=== PATIENT | male | born 1960 | race Two or more races ===

== ENCOUNTER 2017-10-23 22:00 | Emergency (ER) | payer SELFPAY | END 2017-10-24 02:21 | disposition left against medical advice (07) | LOC: ER 22:00 | DX: F10.120 Alcohol abuse with intoxication, uncomplicated (principal); Z53.21 Procedure and treatment not carried out due to patient leaving prior to being seen by health care provider ==

== ENCOUNTER 2018-05-19 10:33 | Inpatient (IN) | payer MEDICAID, OTHER ==
[~2018-05-19] VITALS: Ht 172.7 cm; Wt 88.0 kg
[2018-05-19 10:49] LABS: Urine WBC None Seen /hpf (0 - 3)
[2018-05-19] MEDS ORDERED: SODIUM CHLORIDE 0.9% 1,000 ML IV ONE (11:00)
[2018-05-19] MEDS ORDERED: ONDANSETRON HCL 4 MG/2 ML VIAL IV ONE ×2 (11:00→14:00)
[2018-05-19 11:12] LABS: Urine Bacteria NONE SEEN /hpf (None Seen); Urine Blood Negative /uL (Negative); Urine Mucus FEW (None Seen); Urine Specific Gravity 1.012 (1.001-1.035)
[2018-05-19] MEDS ORDERED: KETOROLAC TROMETH 30 MG/ML 1ML VIAL IV ONE (11:30)
[2018-05-19 11:31] LABS: Basophils # (auto) 0 uL; Basophils % (auto) 0.3 % (0.0-2.0); Eosinophils # (auto) 0 uL; Eosinophils % (auto) 0.1 % (0.0-7.0); Hematocrit 48.2 % (41.0-53.0); Hemoglobin 16.2 g/dL (13.5-17.5); Lymphocytes # (auto) 0.8 uL; Lymphocytes % (auto) 9.5 % (10.0-50.0); Mean Corpuscular Hemoglobin 29.7 pg (28.0-32.0); Mean Corpuscular Hgb Conc. 33.7 g/dL (32.0-36.0); Mean Corpuscular Volume 88.3 fL (80.0-100.0); Monocytes # (auto) 0.5 uL; Monocytes % (auto) 6.1 % (0.0-12.0); Neutrophils # (auto) 7.5 uL; Nucleated Red Blood Cells % 0.1 %; Platelet Count (auto) 120 10^3/uL (140-450); Red Blood Cells 5.46 10^6/uL (4.5-5.90); Red Cell Distribution Width 15.5 % (11.8-14.3); White Blood Cell 8.9 10^3/uL (4.4-10.8)
[2018-05-19 11:59] LABS: Alanine Aminotransferase 415 U/L (16-61); Albumin 3.5 g/dL (3.4-5.0); Alkaline Phosphatase 120 U/L (45-117); Amylase 985 U/L (25-115); Anion Gap 6 (5-15); Aspartate Aminotransferase 371 U/L (15-37); BUN/Creatinine Ratio 15.9; Bilirubin, Total 2.2 mg/dL (0.2-1.0); Blood Urea Nitrogen 26 mg/dL (7-18); Calcium 8.6 mg/dL (8.5-10.1); Carbon Dioxide 26 mmol/L (21-32); Chloride 105 mmol/L (98-107); GFR African American 56 mL/min; GFR Non-African American 46 mL/min; Glucose 162 mg/dL (74-106); Lipase 15365 U/L (73-393); Magnesium 2.3 mg/dL (1.6-2.6); Potassium 4.1 mmol/L (3.5-5.1); Sodium 137 mmol/L (136-145); Total Protein 8.3 g/dL (6.4-8.2)
[2018-05-19] MEDS ORDERED: SODIUM CHLORIDE 0.9% 1,000 ML IVB ONE (12:38)
[2018-05-19] MEDS ORDERED: PANTOPRAZOLE 40 MG/10 ML VIAL IV ONE ×2 (12:45→15:00)
[2018-05-19] MEDS ORDERED: MORPHINE SULF INJ 2 MG/ML SYRINGE 1ML IV ONE ×2 (14:00→15:30)
[2018-05-19] MEDS ORDERED: DEXTROSE (50%) 50ML SYRG IV PRN (15:00)
[2018-05-19] MEDS ORDERED: ONDANSETRON HCL 4 MG/2 ML VIAL IV PRN (15:00)
[2018-05-19] MEDS ORDERED: MORPHINE SULF INJ 2 MG/ML SYRINGE 1ML IV PRN (15:00)
[2018-05-19] MEDS ORDERED: LORazepam 0.5 MG TAB PO PRN (15:00)
[2018-05-19] MEDS ORDERED: NITROGLYCERIN 0.4 MG SL TAB SL PRN (15:00)
[2018-05-19] MEDS: SODIUM CHLORIDE 0.9% 1,000 ML IV SCH ×2 (15:07→23:13)
[2018-05-19] MEDS: ACCU-CHEK COMFORT CURVE STRIP VI SCH ×2 (17:08→23:14)
[2018-05-19] MEDS: MORPHINE SULFATE 4 MG/ML SYR/VIAL IV PRN ×2 (18:56→23:13)
[2018-05-19 20:30] VITALS: BP 147/91
[2018-05-19 21:40] VITALS: BP 147/91
[2018-05-19] MEDS: metroNIDAZOLE 500MG/100ML 100 ML IV SCH (23:14)
[2018-05-20] MEDS: MORPHINE SULFATE 4 MG/ML SYR/VIAL IV PRN (03:47)
[2018-05-20] MEDS: SODIUM CHLORIDE 0.9% 1,000 ML IV SCH ×3 (04:33→17:26)
[2018-05-20 05:35] VITALS: BP 112/62
[2018-05-20] MEDS: metroNIDAZOLE 500MG/100ML 100 ML IV SCH (06:00)
[2018-05-20] MEDS: ACCU-CHEK COMFORT CURVE STRIP VI SCH ×3 (06:00→18:00)
[2018-05-20 07:04] LABS: Basophils # (auto) 0 uL; Eosinophils # (auto) 0 uL; Eosinophils % (auto) 0.3 % (0.0-7.0); Hematocrit 45.1 % (41.0-53.0); Lymphocytes # (auto) 0.4 uL; Lymphocytes % (auto) 4.8 % (10.0-50.0); Mean Corpuscular Hemoglobin 29.7 pg (28.0-32.0); Mean Corpuscular Hgb Conc. 33.3 g/dL (32.0-36.0); Mean Corpuscular Volume 89.1 fL (80.0-100.0); Monocytes # (auto) 0.9 uL; Monocytes % (auto) 9.9 % (0.0-12.0); Neutrophils # (auto) 7.5 uL; Platelet Count (auto) 81 10^3/uL (140-450); Red Blood Cells 5.06 10^6/uL (4.5-5.90); Red Cell Distribution Width 15.4 % (11.8-14.3); White Blood Cell 8.8 10^3/uL (4.4-10.8)
[2018-05-20 07:26] LABS: Cholesterol 127 mg/dL (< 200); HDL Cholesterol 57 mg/dL (40-59); LDL Cholesterol 62 mg/dL (< 100); Triglycerides 80 mg/dL (< 150)
[2018-05-20 08:00] VITALS: BP 91/47
[2018-05-20 08:02] LABS: Sodium 138 mmol/L (136-145)
[2018-05-20 08:03] LABS: Alkaline Phosphatase 92 U/L (45-117); Anion Gap 5 (5-15); Aspartate Aminotransferase 198 U/L (15-37); BUN/Creatinine Ratio 16.5; Blood Urea Nitrogen 22 mg/dL (7-18); Carbon Dioxide 18 mmol/L (21-32); Chloride 115 mmol/L (98-107); GFR African American 72 mL/min; GFR Non-African American 59 mL/min; Glucose 99 mg/dL (74-106)
[2018-05-20 08:04] LABS: Alanine Aminotransferase 327 U/L (16-61); Albumin 2.2 g/dL (3.4-5.0); Amylase 362 U/L (25-115); Bilirubin, Total 0.6 mg/dL (0.2-1.0); Calcium 6.8 mg/dL (8.5-10.1); Lipase 2217 U/L (73-393); Total Protein 6.5 g/dL (6.4-8.2)
[2018-05-20] MEDS: PANTOPRAZOLE 40 MG/10 ML VIAL IV SCH (09:39)
[2018-05-20 13:00] VITALS: BP 86/60
[2018-05-20] MEDS: CEFTRIAXONE SODIUM 2 GM in D5W 5% 50 ML IV SCH (14:27)
[2018-05-20] MEDS: MORPHINE SULF INJ 2 MG/ML SYRINGE 1ML IV PRN ×2 (15:36→20:12)
[2018-05-20 17:00] VITALS: BP 102/55
[2018-05-20 22:00] VITALS: BP 133/81
[2018-05-21] MEDS: SODIUM CHLORIDE 0.9% 1,000 ML IV SCH ×2 (00:12→05:49)
[2018-05-21] MEDS: MORPHINE SULF INJ 2 MG/ML SYRINGE 1ML IV PRN ×5 (00:12→19:43)
[2018-05-21] MEDS: ACCU-CHEK COMFORT CURVE STRIP VI SCH ×4 (00:19→18:01)
[2018-05-21 05:30] VITALS: BP 143/77
[2018-05-21 07:08] LABS: INR 1.07 (0.9-1.15); Partial Thromboplastin Time 26.8 sec (23.78-33.04); Prothrombin Time 11.4 sec (9.27-12.13)
[2018-05-21 09:00] VITALS: BP 151/86
[2018-05-21 09:39] LABS: Albumin 2.4 g/dL (3.4-5.0); Calcium 6.8 mg/dL (8.5-10.1); Potassium 3.8 mmol/L (3.5-5.1)
[2018-05-21 09:41] LABS: Bilirubin, Total 0.4 mg/dL (0.2-1.0); Total Protein 6.1 g/dL (6.4-8.2)
[2018-05-21] MEDS: PANTOPRAZOLE 40 MG/10 ML VIAL IV SCH (10:17)
[2018-05-21] MEDS: CEFTRIAXONE SODIUM 2 GM in D5W 5% 50 ML IV SCH (11:41)
[2018-05-21 13:00] VITALS: BP 163/95
[2018-05-21] MEDS ORDERED: LABETALOL HCL 5 MG/ML ML 20ML VIAL IV PRN (13:45)
[2018-05-21] MEDS ORDERED: LORazepam 2MG/ML-1ML VIAL IV PRN (13:45)
[2018-05-21] MEDS: SOD CHL 0.45% WITH 20MEQ KCL 1,000 ML IV SCH (15:17)
[2018-05-21 17:19] VITALS: BP 163/94
[2018-05-21 22:00] VITALS: BP 158/86
[2018-05-21] MEDS: TEMAZEPAM 15 MG CAP PO PRN (22:00)
[2018-05-21] MEDS: MORPHINE SULFATE 4 MG/ML SYR/VIAL IV PRN (23:59)
[2018-05-22] MEDS: SOD CHL 0.45% WITH 20MEQ KCL 1,000 ML IV SCH
[2018-05-22] MEDS: ACCU-CHEK COMFORT CURVE STRIP VI SCH ×2 (00:55→05:38)
[2018-05-22 02:53] VITALS: BP 156/71
[2018-05-22 04:52] VITALS: BP 153/82
[2018-05-22 09:00] VITALS: BP 183/87
[2018-05-22 09:05] LABS: BUN/Creatinine Ratio 14.4; Calcium 8.4 mg/dL (8.5-10.1); Potassium 4.1 mmol/L (3.5-5.1)
[2018-05-22] MEDS ORDERED: NICOTINE 21MG/24 HR TOPICAL PATCH TD ONE ×2 (10:15→10:30)
[2018-05-22] MEDS ORDERED: amLODIPine BESYLATE 5 MG TAB PO ONE ×2 (10:15→10:30)
[2018-05-22] MEDS: PANTOPRAZOLE 40 MG/10 ML VIAL IV SCH (10:18)
[2018-05-22] MEDS: CEFTRIAXONE SODIUM 2 GM in D5W 5% 50 ML IV SCH (10:19)
[2018-05-22] MEDS ORDERED: LISINOPRIL 20 MG TAB PO ONE (10:30)
[2018-05-22] MEDS ORDERED: CEFTRIAXONE SODIUM 2 GM in D5W 5% 50 ML IV ONE (10:30)
[2018-05-22] MEDS ORDERED: PANTOPRAZOLE 40 MG/10 ML VIAL IV ONE (10:30)
[2018-05-22] MEDS: D5W/SOD CHL 0.45%/KCL 20MEQ 1,000 ML IV SCH ×2 (11:15→19:55)
[2018-05-22] MEDS: KETOROLAC TROMETH 30 MG/ML 1ML VIAL IV PRN ×2 (11:26→17:16)
[2018-05-22 13:00] VITALS: BP 112/84
[2018-05-22] MEDS ORDERED: hydrALAZINE HCL 20 MG/ML VL IV PRN (14:45)
[2018-05-22] MEDS ORDERED: MORPHINE SULF INJ 2 MG/ML SYRINGE 1ML IV PRN (14:45)
[2018-05-22 17:00] VITALS: BP 120/78
[2018-05-22] MEDS: MORPHINE SULF INJ 2 MG/ML SYRINGE 1ML IV PRN (20:09)
[2018-05-22 22:00] VITALS: BP 147/94
[2018-05-22] MEDS ORDERED: NORTRIPTYLINE HCL 10 MG CAP PO SCH (22:00)
[2018-05-22] MEDS ORDERED: NORTRIPTYLINE HCL 25 MG CAP PO ONE (23:00)
[2018-05-22] MEDS: TEMAZEPAM 15 MG CAP PO PRN (23:05)
[2018-05-22] MEDS: LISINOPRIL 20 MG TAB PO SCH (23:06)
[2018-05-23] MEDS: MORPHINE SULF INJ 2 MG/ML SYRINGE 1ML IV PRN (04:35)
[2018-05-23] MEDS: D5W/SOD CHL 0.45%/KCL 20MEQ 1,000 ML IV SCH (04:35)
[2018-05-23 05:00] VITALS: BP 122/85
[2018-05-23 06:03] LABS: Basophils # (auto) 0 uL; Basophils % (auto) 0.4 % (0.0-2.0); Eosinophils # (auto) 0.1 uL; Hematocrit 44.7 % (41.0-53.0); Hemoglobin 15.7 g/dL (13.5-17.5); Lymphocytes # (auto) 2.8 uL; Mean Corpuscular Hemoglobin 30.3 pg (28.0-32.0); Mean Corpuscular Hgb Conc. 35.2 g/dL (32.0-36.0); Mean Corpuscular Volume 86.2 fL (80.0-100.0); Monocytes # (auto) 0.8 uL; Neutrophils # (auto) 2.9 uL; Neutrophils % (auto) 43.6 % (37.0-80.0); Nucleated Red Blood Cells % 0.2 %; Platelet Count (auto) 117 10^3/uL (140-450); Red Blood Cells 5.19 10^6/uL (4.5-5.90); Red Cell Distribution Width 15.2 % (11.8-14.3); White Blood Cell 6.7 10^3/uL (4.4-10.8)
[2018-05-23 06:24] LABS: Calcium 8.6 mg/dL (8.5-10.1); Potassium 4.3 mmol/L (3.5-5.1)
[2018-05-23 06:30] LABS: BUN/Creatinine Ratio 14.4
[2018-05-23 09:00] VITALS: BP 148/86
[2018-05-23] MEDS: PANTOPRAZOLE 40 MG/10 ML VIAL IV SCH (09:59)
[2018-05-23] MEDS: CEFTRIAXONE SODIUM 2 GM in D5W 5% 50 ML IV SCH (10:00)
[2018-05-23] MEDS: NICOTINE 21MG/24 HR TOPICAL PATCH TD SCH (10:01)
[2018-05-23] MEDS: amLODIPine BESYLATE 5 MG TAB PO SCH (10:01)
[2018-05-23] MEDS: LISINOPRIL 20 MG TAB PO SCH ×2 (10:02→22:14)
[2018-05-23] MEDS: KETOROLAC TROMETH 30 MG/ML 1ML VIAL IV PRN ×3 (10:20→22:16)
[2018-05-23 10:23] LABS: Alcohol, Urine < 3.0 mg/dL (0-5); Amphetamine Screen, Urine NEGATIVE (NEGATIVE); Barbiturate Scree,Urine NEGATIVE (NEGATIVE); Benzodiazephine Screen, Urine NEGATIVE (NEGATIVE); Cannabinoid Screen, Urine NEGATIVE (NEGATIVE); Cocaine Screen, Urine NEGATIVE (NEGATIVE); Opiate Scree,Urine NEGATIVE (NEGATIVE); Phencyclidine Screen, Urine NEGATIVE (NEGATIVE)
[2018-05-23] MEDS ORDERED: ADENOSINE 72 MG in GIVE UN-DILUTED 0 ML IV STA (12:48)
[2018-05-23 13:00] VITALS: BP 146/80
[2018-05-23 14:33] VITALS: BP 120/59
[2018-05-23] MEDS ORDERED: ACETAMINOPHEN 325 MG TAB PO PRN (15:15)
[2018-05-23 17:00] VITALS: BP 144/82
[2018-05-23 21:24] VITALS: BP 139/84
[2018-05-23] MEDS: NORTRIPTYLINE HCL 25 MG CAP PO SCH (22:13)
[2018-05-23] MEDS: TEMAZEPAM 15 MG CAP PO PRN (22:13)
[2018-05-24 05:42] VITALS: BP 174/98
[2018-05-24 06:48] LABS: BUN/Creatinine Ratio 11.2; Calcium 8.4 mg/dL (8.5-10.1)
[2018-05-24] MEDS ORDERED: LIDOCAINE 2% (LOCAL ANESTH.) PF 5ml SDV ONE (07:50)
[2018-05-24] MEDS ORDERED: IODIXANOL 320MG/ML 100ML BTL IV ONE ×2 (07:50→10:07)
[2018-05-24] MEDS: D5W/SOD CHL 0.45%/KCL 20MEQ 1,000 ML IV SCH ×2 (07:52→22:02)
[2018-05-24] MEDS: KETOROLAC TROMETH 30 MG/ML 1ML VIAL IV PRN ×3 (08:18→21:53)
[2018-05-24 08:33] VITALS: BP 140/93
[2018-05-24] MEDS ORDERED: SODIUM CHL 0.9% 0 ML ONE (09:57)
[2018-05-24] MEDS ORDERED: MIDAZOLAM HCL 1MG/1ML-2 ML VIAL ONE (09:57)
[2018-05-24] MEDS ORDERED: ANGIOMAX 250 MG VIAL IV ONE (09:57)
[2018-05-24] MEDS ORDERED: fentaNYL CITRATE 100 MCG/2 ML VL ONE (09:57)
[2018-05-24] MEDS: PANTOPRAZOLE 40 MG/10 ML VIAL IV SCH (11:53)
[2018-05-24] MEDS: CEFTRIAXONE SODIUM 2 GM in D5W 5% 50 ML IV SCH (11:54)
[2018-05-24] MEDS: amLODIPine BESYLATE 5 MG TAB PO SCH (11:55)
[2018-05-24] MEDS: LISINOPRIL 20 MG TAB PO SCH ×2 (11:56→21:51)
[2018-05-24] MEDS: NICOTINE 21MG/24 HR TOPICAL PATCH TD SCH (11:57)
[2018-05-24 12:46] VITALS: BP 128/78
[2018-05-24] MEDS ORDERED: traMADol HCL 50 MG TAB PO PRN (13:15)
[2018-05-24] MEDS ORDERED: MORPHINE SULFATE 4 MG/ML SYR/VIAL IV PRN ×2 (13:15→16:15)
[2018-05-24] MEDS: HYDROcodone-ACET 5/325MG TAB PO PRN ×2 (13:41→18:59)
[2018-05-24 17:07] VITALS: BP 144/97
[2018-05-24 21:42] VITALS: BP 146/90
[2018-05-24] MEDS: TEMAZEPAM 15 MG CAP PO PRN (21:58)
[2018-05-24] MEDS: NORTRIPTYLINE HCL 25 MG CAP PO SCH (21:59)
[2018-05-25 05:28] VITALS: BP 129/72
[2018-05-25 06:10] LABS: BUN/Creatinine Ratio 10.3; Calcium 8.1 mg/dL (8.5-10.1); Potassium 3.7 mmol/L (3.5-5.1)
[2018-05-25 06:27] LABS: Cholesterol 128 mg/dL (< 200); HDL Cholesterol 30 mg/dL (40-59); LDL Cholesterol 93 mg/dL (< 100); Triglycerides 124 mg/dL (< 150)
[2018-05-25] MEDS: MORPHINE SULFATE 4 MG/ML SYR/VIAL IV PRN ×2 (06:50→22:54)
[2018-05-25] MEDS: D5W/SOD CHL 0.45%/KCL 20MEQ 1,000 ML IV SCH ×2 (08:15→19:01)
[2018-05-25 09:58] VITALS: BP 130/88
[2018-05-25] MEDS: NICOTINE 21MG/24 HR TOPICAL PATCH TD SCH (10:00)
[2018-05-25] MEDS: PANTOPRAZOLE 40 MG/10 ML VIAL IV SCH (10:03)
[2018-05-25] MEDS: LISINOPRIL 20 MG TAB PO SCH ×2 (10:03→21:30)
[2018-05-25] MEDS: amLODIPine BESYLATE 5 MG TAB PO SCH (10:04)
[2018-05-25] MEDS: HYDROcodone-ACET 5/325MG TAB PO PRN ×2 (10:11→19:59)
[2018-05-25] MEDS ORDERED: SUCCINYLCHOLINE CHLORIDE 20 MG/ML 10ML VIAL IV ONE (12:52)
[2018-05-25] MEDS ORDERED: fentaNYL CITRATE 100 MCG/2 ML VL ONE (12:55)
[2018-05-25] MEDS ORDERED: LIDOCAINE 2% (LOCAL ANESTH.) PF 5ml SDV ONE (12:55)
[2018-05-25] MEDS ORDERED: ONDANSETRON HCL 4 MG/2 ML VIAL ONE (12:55)
[2018-05-25] MEDS ORDERED: MIDAZOLAM HCL 1MG/1ML-2 ML VIAL ONE (12:55)
[2018-05-25] MEDS ORDERED: DEXAMETHASONE SOD PHOS 10MG/1ML VIAL INJ ONE (12:56)
[2018-05-25] MEDS ORDERED: PROPOFOL 10 MG/ML 20 ML IV ONE (12:56)
[2018-05-25] MEDS ORDERED: LIDOCAINE 1% HCL (LOCAL ANESTH.) INJ 20ML MDV ONE (12:56)
[2018-05-25] MEDS ORDERED: BUPIVACAINE 0.25% INJ 50ML VIAL ONE (12:56)
[2018-05-25] MEDS ORDERED: ETOMIDATE (2MG/ML) 20ML VIAL IV ONE (12:57)
[2018-05-25] MEDS ORDERED: ceFAZolin 1GM/50ML 50 ML IV ONE (13:24)
[2018-05-25 14:33] VITALS: BP 148/93
[2018-05-25] MEDS ORDERED: LABETALOL HCL 5 MG/ML 4ML SYRINGE IV PRN (14:45)
[2018-05-25] MEDS ORDERED: METOCLOPRAMIDE HCL 5MG/ml INJ 2ml VIAL IV ONE (14:45)
[2018-05-25] MEDS ORDERED: HYDROmorphone HCL 2 MG/ML VL IV PRN ×2 (14:45)
[2018-05-25] MEDS ORDERED: ePHEDrine SULFATE 50 MG/ML AMP IV PRN (14:45)
[2018-05-25] MEDS ORDERED: NALOXONE HCL 0.4 MG/ML VIAL IV PRN (14:45)
[2018-05-25] MEDS ORDERED: hydrALAZINE HCL 20 MG/ML VL IV PRN (14:45)
[2018-05-25 17:00] VITALS: BP 160/96
[2018-05-25] MEDS: TEMAZEPAM 15 MG CAP PO PRN (20:29)
[2018-05-25 21:30] VITALS: BP 147/109
[2018-05-25] MEDS: NORTRIPTYLINE HCL 25 MG CAP PO SCH (21:32)
[2018-05-25] MEDS ORDERED: KETOROLAC TROMETH 30 MG/ML 1ML VIAL IV ONE (21:45)
[2018-05-26 05:00] VITALS: BP 135/67
[2018-05-26] MEDS: MORPHINE SULFATE 4 MG/ML SYR/VIAL IV PRN ×2 (05:18→09:57)
[2018-05-26] MEDS: D5W/SOD CHL 0.45%/KCL 20MEQ 1,000 ML IV SCH (07:08)
[2018-05-26 07:50] LABS: BUN/Creatinine Ratio 11.9; Calcium 8.5 mg/dL (8.5-10.1); Potassium 4.3 mmol/L (3.5-5.1)
[2018-05-26 09:35] VITALS: BP 135/89
[2018-05-26] MEDS: amLODIPine BESYLATE 5 MG TAB PO SCH (09:54)
[2018-05-26] MEDS: LISINOPRIL 20 MG TAB PO SCH (09:55)
[2018-05-26] MEDS: PANTOPRAZOLE 40 MG/10 ML VIAL IV SCH (09:57)
[2018-05-26] MEDS: NICOTINE 21MG/24 HR TOPICAL PATCH TD SCH (09:57)
[2018-05-26 14:52] VITALS: BP 119/79
[2018-05-26] MEDS: HYDROcodone-ACET 5/325MG TAB PO PRN (16:51)
== END 2018-05-26 17:10 | disposition home or self-care (01) | DRG 263 ==
LOC: ER 10:33 → TELE 10:34 → TELE-CENTR 20:06
PROVIDERS: ADMIT Internal Medicine; ATTEND Internal Medicine
PROC: 4A023N7 Measurement of Cardiac Sampling and Pressure, Left Heart, Percutaneous Approach (ICD-10-PCS; 2018-05-24)
PROC: B2111ZZ Fluoroscopy of Multiple Coronary Arteries using Low Osmolar Contrast (ICD-10-PCS; 2018-05-24)
PROC: B2151ZZ Fluoroscopy of Left Heart using Low Osmolar Contrast (ICD-10-PCS; 2018-05-24)
PROC: 0FT44ZZ Resection of Gallbladder, Percutaneous Endoscopic Approach (ICD-10-PCS; principal; 2018-05-25 13:22)
DX: K80.13 Calculus of gallbladder with acute and chronic cholecystitis with obstruction (principal); N17.0 Acute kidney failure with tubular necrosis; K85.10 Biliary acute pancreatitis without necrosis or infection; E44.0 Moderate protein-calorie malnutrition; I42.9 Cardiomyopathy, unspecified; I50.32 Chronic diastolic (congestive) heart failure; I13.0 Hypertensive heart and chronic kidney disease with heart failure and stage 1 through stage 4 chronic kidney disease, or unspecified chronic kidney disease; K66.0 Peritoneal adhesions (postprocedural) (postinfection); R73.9 Hyperglycemia, unspecified; N18.2 Chronic kidney disease, stage 2 (mild); R00.1 Bradycardia, unspecified; F17.220 Nicotine dependence, chewing tobacco, uncomplicated; I25.10 Atherosclerotic heart disease of native coronary artery without angina pectoris; E78.5 Hyperlipidemia, unspecified; Z85.528 Personal history of other malignant neoplasm of kidney; Z68.29 Body mass index [BMI] 29.0-29.9, adult; Z90.5 Acquired absence of kidney; Z82.49 Family history of ischemic heart disease and other diseases of the circulatory system; I25.2 Old myocardial infarction
CPT/HCPCS: 36415; 71045; 74176; 74181; 76705; 78452; 80048; 80053; 80061; 80307; 81001; 82150; 82962; 83036; 83690; 83735; 84484; 85025; 85610; 85730; 86850; 86900; 86901; 93005; 93017; 93306; 93458; 94761; 96361; 96374; 96375; 96376; 99152; A6257; C9113; J0153; J0330; J0690; J0696; J1100; J1885; J2001; J2250; J2405; J2704; J3490; J7060; Q9967

== ENCOUNTER 2018-10-09 15:19 | Inpatient (IN) | payer MEDICAID | END 2018-10-11 13:15 | disposition home or self-care (01) | LOC: TELE 10-10 00:50 → WEST WING 10-11 09:34 → TELE-WESTW 10-10 08:05 → ER 15:19 | DX: I21.A1 Myocardial infarction type 2 (principal); G92 Toxic encephalopathy; F10.129 Alcohol abuse with intoxication, unspecified ==

== ENCOUNTER 2019-04-10 23:00 | Emergency (ER) | payer MEDICAID ==
[~2019-04-10] VITALS: Ht 180.3 cm; Wt 93.0 kg
[~2019-04-10 23:00] MED LIST: FOLI1TAB6 PO; THIA100T10 PO
[2019-04-10 23:35] VITALS: BP 155/84
== END 2019-04-11 02:07 | disposition left against medical advice (07) ==
LOC: ER 23:00
DX: S50.362A Insect bite (nonvenomous) of left elbow, initial encounter (principal); Z53.21 Procedure and treatment not carried out due to patient leaving prior to being seen by health care provider; W57.XXXA Bitten or stung by nonvenomous insect and other nonvenomous arthropods, initial encounter; Y93.89 Activity, other specified; Y92.89 Other specified places as the place of occurrence of the external cause; Y99.8 Other external cause status

== ENCOUNTER 2019-04-11 21:50 | Emergency (ER) | payer MEDICAID ==
[~2019-04-11] VITALS: Ht 175.3 cm; Wt 93.0 kg
[2019-04-12] MEDS ORDERED: methylPREDNISolone SOD SUCC 125 MG/2 ML VL IM ONE (02:15)
[2019-04-12] MEDS ORDERED: cefTRIAXone SOD 1,000 MG VL IM ONE (02:15)
[2019-04-12 02:54] VITALS: BP 98/58
== END 2019-04-12 02:58 | disposition home or self-care (01) ==
LOC: ER 21:50
DX: T78.40XA Allergy, unspecified, initial encounter (principal); I25.10 Atherosclerotic heart disease of native coronary artery without angina pectoris; F32.9 Major depressive disorder, single episode, unspecified; E78.5 Hyperlipidemia, unspecified; I10 Essential (primary) hypertension; Z79.899 Other long term (current) drug therapy; X58.XXXA Exposure to other specified factors, initial encounter
CPT/HCPCS: 96372; 99283; J0696; J2930